=== PATIENT | female | born 1965 | race Caucasian/White ===

== ENCOUNTER 2021-06-06 03:07 | Outpatient (CLI) | payer OTHER, SELFPAY ==
[2021-06-06 10:02] LABS: HCT 37.4 % (36.0-46.0); HGB 11.6 g/dL (11.2-15.7); MCH 27.2 pg (27.0-33.0); MCV 87.8 fL (80-95); MPV 9.7 fL (8.0-11.0); Platelet Count 189 10^3/uL (130-400); RBC 4.26 10^6/uL (3.93-5.22); RDW 13.2 % (11.7-14.6); RDW-SD 42.5 fL; WBC 5.24 10^3/uL (4.4-10.8)
[2021-06-06 11:35] LABS: ALT 40 U/L (14-59); AST 29 U/L (15-37); Albumin 3.5 g/dL (3.4-5.0); Alkaline Phosphatase 109 U/L (46-116); Anion Gap 5.9 mmol/L (3-11); BUN 29 mg/dL (7-18); Bilirubin, Total 0.3 mg/dL (0.2-1.0); CO2 29.1 mmol/L (21.0-32.0); CREATININE 1.1 mg/dL (0.55-1.02); Calcium 8.3 mg/dL (8.5-10.1); Calculated LDL 162 mg/dL (<100); Chloride 108 mmol/L (98-107); Cholesterol 234 mg/dL (<200); Estimated GFR 51.38 (mL/min/1.73m2); Glucose 89 mg/dL (74-106); HDL Cholesterol 66 mg/dL (40-60); Potassium 4.3 mmol/L (3.5-5.1); Sodium 143 mmol/L (136-145); TSH (W/Ref FT4) 2.46 uIU/mL (0.36-3.74); Total Protein 6.6 g/dL (6.4-8.2); Triglyceride 33 mg/dL (<150)
== END 2021-06-06 03:08 | disposition home or self-care (01) ==
LOC: LBO 03:07
PROVIDERS: PCP Student in an Organized Health Care Education/Training Program; Visit Provider Student in an Organized Health Care Education/Training Program
DX: I10 Essential (primary) hypertension (principal); G25.81 Restless legs syndrome; Z13.1 Encounter for screening for diabetes mellitus; Z13.220 Encounter for screening for lipoid disorders; R53.83 Other fatigue; F33.1 Major depressive disorder, recurrent, moderate
CPT/HCPCS: 36415; 80053; 80061; 85027; 84443

== ENCOUNTER 2021-06-14 09:48 | Outpatient (CLI) | payer OTHER, SELFPAY ==
--- NOTE | 2021-06-14 09:15 | DI.RAD_ITS ---
Exam(s) XR FACIAL BONES LIMITED EXAM: XR FACIAL BONES LIMITED CLINICAL HISTORY: Evaluate under-eye pain (Maxilla/ZygoProcess), face pain, fall, PIPER, R51.9. TECHNIQUE: 2D digital imaging was performed. COMPARISON: No exams were available for comparison FINDINGS: Limited two view study reveals no obvious fractures nor fluid in the visualized paranasal sinuses. If clinically indicated follow-up maxillofacial CT scan can be performed. IMPRESSION: DATA REPOSITORY: RADIATION DOSE DELIVERED:
== END 2021-06-14 10:08 ==
LOC: DI 09:49
PROVIDERS: PCP Student in an Organized Health Care Education/Training Program; Visit Provider Student in an Organized Health Care Education/Training Program
DX: G89.11 Acute pain due to trauma (principal); R51.9 Headache, unspecified; W19.XXXA Unspecified fall, initial encounter
CPT/HCPCS: 70140

== ENCOUNTER 2021-09-05 11:19 | Outpatient (CLI) | payer OTHER, SELFPAY ==
[2021-09-06 11:12] LABS: COVID-19 RT-PCR UVMMC Result Negative (Negative)
== END 2021-09-05 11:20 | disposition home or self-care (01) ==
LOC: LBO 11:19
PROVIDERS: PCP Student in an Organized Health Care Education/Training Program; Visit Provider Student in an Organized Health Care Education/Training Program
DX: Z20.822 Contact with and (suspected) exposure to COVID-19 (principal)
CPT/HCPCS: U0003

== ENCOUNTER 2021-10-16 01:52 | Outpatient (CLI) | payer OTHER, SELFPAY ==
--- NOTE | 2021-10-16 06:45 | DI.RAD_ITS ---
Exam(s) XR CHEST 2V PA LATERAL EXAM: XR CHEST 2V PA LATERAL CLINICAL HISTORY: lingering cough; r/o pneumonia,r05.9,j45.909,reactive airway disease TECHNIQUE: 2D digital imaging was performed of the chest. Two images were obtained. PA and lateral views were obtained. COMPARISON: No exams were available for comparison FINDINGS: MEDIASTINUM: Normal. HEART: Normal. PULMONARY VASCULATURE: Normal. LUNGS: Clear. PLEURAL SPACE: No pleural effusion or pneumothorax. BONE:Within normal limits for the patient's age. OTHER FINDINGS:Normal. IMPRESSION: No acute pulmonary findings. DATA REPOSITORY: RADIATION DOSE DELIVERED:
== END 2021-10-16 02:12 ==
LOC: DI 01:52
PROVIDERS: PCP Student in an Organized Health Care Education/Training Program; Visit Provider Student in an Organized Health Care Education/Training Program
DX: J45.909 Unspecified asthma, uncomplicated (principal); R05.9 Cough, unspecified
CPT/HCPCS: 71046

== ENCOUNTER 2022-08-09 00:55 | Outpatient (CLI) | payer OTHER, SELFPAY ==
[2022-08-09 18:00] LABS: Vitamin B12 380 pg/mL (193-986)
== END 2022-08-09 00:56 | disposition home or self-care (01) ==
LOC: LBO 00:55
PROVIDERS: PCP Student in an Organized Health Care Education/Training Program; Visit Provider Nurse Practitioner Adult Health
DX: R41.3 Other amnesia (principal)
CPT/HCPCS: 36415; 82607

== ENCOUNTER 2022-09-11 02:15 | Outpatient (CLI) | payer OTHER, SELFPAY ==
--- NOTE | 2022-09-11 06:30 | DI.MRI_ITS ---
Exam(s) MR BRAIN WO EXAM: MR BRAIN WO CLINICAL HISTORY: memory changes, ? hx abnormal MRI at outside hosp,r41.3 TECHNIQUE: Multiplanar multisequence MRI of the brain was performed. COMPARISON: No exams were available for comparison FINDINGS: The ventricular system is normal in appearance. Note is made of a midline fluid collection of the holder perior aspect of the posterior fossa causing mild deformity of superior aspect of the cerebellar tony spheres, the appearance is most suggestive of an arachnoid cyst. This measures about 25 x 24 x 22 mi llimeters in diameter No signal abnormality identified in the brain. The orbital and temporal bone structures appear intact as does the pituitary. Diffusion weighted imaging shows no evidence of infarction. Susceptibility weighted imaging shows no evidence of intracranial hemorrhage. There is normal flow void in the [place] vasculature. IMPRESSION: Probable posterior fossa arachnoid cyst, otherwise unremarkable examination.. DATA REPOSITORY:
== END 2022-09-11 02:35 ==
LOC: DI 02:16
PROVIDERS: PCP Student in an Organized Health Care Education/Training Program; Visit Provider Nurse Practitioner Adult Health
DX: R41.3 Other amnesia (principal); R94.02 Abnormal brain scan
CPT/HCPCS: 70551

== ENCOUNTER 2023-01-16 03:34 | Outpatient (CLI) | payer OTHER, SELFPAY ==
[2023-01-16 08:03] LABS: HCT 38.6 % (36.0-46.0); HGB 12.3 g/dL (11.2-15.7); MCH 28.5 pg (27.0-33.0); MCHC 31.9 % (32.0-36.0); MCV 90 fL (80-95); MPV 9.6 fL (8.0-11.0); Platelet Count 242 10^3/uL (130-400); RBC 4.31 10^6/uL (3.93-5.22); RDW-SD 42.6 fL; WBC 5.55 10^3/uL (4.4-10.8)
[2023-01-16 08:21] LABS: ALT 55 U/L (14-59); AST 33 U/L (15-37); Albumin 3.5 g/dL (3.4-5.0); Alkaline Phosphatase 125 U/L (46-116); Anion Gap 6.9 mmol/L (3-11); BUN 27 mg/dL (7-18); Bilirubin, Total 0.3 mg/dL (0.2-1.0); CO2 30.1 mmol/L (21.0-32.0); CREATININE 1.1 mg/dL (0.55-1.02); Chloride 106 mmol/L (98-107); Estimated GFR 58.24 (mL/min/1.73m2); Glucose 94 mg/dL (74-106); Potassium 4.8 mmol/L (3.5-5.1); Sodium 143 mmol/L (136-145); Total Protein 7.2 g/dL (6.4-8.2)
== END 2023-01-16 03:35 | disposition home or self-care (01) ==
LOC: LBO 03:34
PROVIDERS: PCP Student in an Organized Health Care Education/Training Program; Visit Provider Student in an Organized Health Care Education/Training Program
DX: R53.83 Other fatigue (principal); E86.0 Dehydration; Z79.899 Other long term (current) drug therapy; Z86.2 Personal history of diseases of the blood and blood-forming organs and certain disorders involving the immune mechanism; F41.8 Other specified anxiety disorders
CPT/HCPCS: 36415; 80053; 85027

== ENCOUNTER → 2024-03-10 03:42 | Outpatient (CLI) | payer OTHER, SELFPAY ==
--- NOTE | 2024-03-10 06:15 | DI.MAMMO_ITS ---
Exam(s) MAMMO SCREENING EXAM: MAMMO SCREENING CLINICAL HISTORY: screening,z12.39 TECHNIQUE: Bilateral full field digital CC and MLO mammographic images were obtained with 3D tomosyn thesis and utilizing computer aided detection (CAD). COMPARISON: Available for comparison. FINDINGS: Masses/Architectural Distortion: There is a new 4 mm nodule in the upper central right breast on the MLO view. Microcalcifications: No suspicious pleomorphic-type are seen. Skin Thickening/Nipple Retraction: None. IMPRESSION: 1. New 4 mm nodule in the upper central right breast on the MLO view. 2. This area should be further evaluated with a spot compression view. Limited right breast ultrasou nd may be indicated at that time. BI-RADS Category 0 - Assessment Incomplete: Need additional imaging evaluation Breast Density - Category B - Scattered areas of fibroglandular density Breast density category C or D implies that the patient has dense breast tissue. Dense breast tissue is very common and is not abnormal but dense breast tissue can make it harder to find cancer on a ma mmogram. Also, dense breast tissue may increase their breast cancer risk. This information about the result of the mammogram report was provided to the patient to raise their awareness. Use this report when you speak with the patient about their risks for breast cancer, which includes their family hist ory. At that time, you may recommend for more screening tests (Ultrasound or MRI) as they might be us eful based on their risk. A negative radiographic report should not delay biopsy if a dominant or clinically suspicious mass is present. Up to ten percent of cancers are not identified on mammography. A negative report may reinforce clinical impression. Adenosis and dense breasts may obscure an underlying neoplasm. False positive reports average 6 to 10%. Patient will receive a letter notifying them of these results.
== END ==
PROVIDERS: PCP Student in an Organized Health Care Education/Training Program; Visit Provider Student in an Organized Health Care Education/Training Program
DX: Z12.31 Encounter for screening mammogram for malignant neoplasm of breast (principal); N63.12 Unspecified lump in the right breast, upper inner quadrant
CPT/HCPCS: 77063; 77067

== ENCOUNTER → 2024-03-19 03:39 | Outpatient (CLI) | payer OTHER, SELFPAY ==
--- NOTE | 2024-03-19 | DI.MAMMO_ITS ---
Exam(s) MG MAMMO SCREEN CALL BACK UNI US BREAST RT COMPLETE EXAM: MG MAMMO SCREEN CALL BACK UNI-RIGHT AND COMPLETE RIGHT BREAST ULTRASOUND CLINICAL HISTORY: NEW 4 MM NODULE UPPER CENTRAL RT BREAST R92.8 ABNL MAMMO. TECHNIQUE: Unilateral RIGHT BREAST spot mammographic images obtained with 3D tomosynthesisand utiliz ing computer aided detection (CAD). . Complete RIGHT breast Ultrasound was also performed, including all 4 quadrants, the retroareolar rachel on, and the ipsilateral axilla. COMPARISON: Prior mammograms were reviewed. This additional imaging was performed due to findings described on the recent screening mammogram of 03/10/2024. FINDINGS: DIAGNOSTIC MAMMOGRAM: Additional mammographic views performed todayappears to dissipate the nodule on the small spot compre ssion paddle view but persists on the larger paddle view. We proceeded with ultrasound... COMPLETE RIGHT BREAST ULTRASOUND: Ultrasound performed today reveals no evidence of focal finding to correspond to the small nodular de nsity described on the recent screening mammogram of 03/10/2024.. At the 4 o'clock position there is a 1.3 by 0.4 cm slightly lobulated solid nodule which contains a s maritza calcification, this corresponding to the fibroadenoma seen on the mammogram and which is unchan ged from prior mammograms dating back to at least 2013. At the central para areolar 2 o'clock position there is a similar appearing slightly lobulated solid nodule measuring 5 x 4 mm. Does not contain a calcification. Exhibits neutral through transmission. I suspect that this is either a hemorrhagic microcyst or another smaller fibroadenoma. This probab ly does not correspond to the nodule seen on the recent mammogram. There are no other focal findings in all 4 quadrants. Scanning of the ipsilateral axilla reveals no significant adenopathy. IMPRESSION: 1. Findings as above which are probably benign. Appropriate follow-up as discussed by myself with the patient today is repeat right breast mammogram and ultrasound in 6 months, this mostly to revisit the small mammographically visible nodule seen on the mammogram of 03/10/2024 and to revisit the 2 o'clock position nodule on the ultrasound. The patient was informed of these findings and recommendations by myself prior to leaving the departm ent today. BI-RADS Category 3 - 6 month - Probably Benign Finding: Recommend follow-up mammography in 6 months Breast Density - Category B - Scattered areas of fibroglandular density Breast density Category C or D implies that the patient has dense breast tissue. Dense breast tissue can make it harder to find cancer on a mammogram. Dense breast tissue is also associated with an incr eased risk of breast cancer. This information about the result of the mammogram report was provided to the patient to raise their awareness. Use this report when you speak with the patient about their risks for breast cancer, which includes their family history. At that time, you may recommend additional screening tests (Ultrasoun d or MRI) as these tests may add significant information. A negative radiographic report should not delay biopsy if a dominant or clinically suspicious mass is present. Up to ten percent of cancers are not identified on mammography. A negative report may reinforce clinical impression. Adenosis and dense breasts may obscure an underlying neoplasm. False positive reports average 6 to 10%. Patient will receive a letter notifying them of these results.
== END ==
PROVIDERS: PCP Student in an Organized Health Care Education/Training Program; Visit Provider Student in an Organized Health Care Education/Training Program
DX: Z12.31 Encounter for screening mammogram for malignant neoplasm of breast (principal); N63.22 Unspecified lump in the left breast, upper inner quadrant
CPT/HCPCS: 76642; 77063; 77067

== ENCOUNTER 2024-10-22 00:03 | Outpatient (CLI) | payer OTHER, SELFPAY ==
--- NOTE | 2024-10-22 14:28 | DI.MAMMO_ITS ---
Exam(s) MG MAMMO DIAGNOSTIC UNI EXAM: MG MAMMO DIAGNOSTIC UNI CLINICAL HISTORY: 6 MO F/U,F/U ABNL INCONCLUSIVE MAMMO,R92.8,RT NODULARITY TECHNIQUE: Cc and MLO mammogram images were performed according to the usual protocol including computer analysis with CAD system, tomosynthesis and C-view imaging. COMPARISON: MG MG MAMMO SCREENING from 03/10/2024 MG MG MAMMO SCREEN CALL BACK UNI from 03/19/2024 US US BREAST RT COMPLETE from 03/19/2024 FINDINGS: The right breast is composed of scattered fibroglandular densities, Breast Density category B. No suspicious masses or suspicious microcalcifications are seen. The small area of nodularity in q uestion on the prior 2023 exam has decreased in size. Stable area of nodularity with calcification n oted in the lower inner quadrant. No skin thickening or abnormal axillary lymph nodes are seen. IMPRESSION: BI-RADS Category 2 - Benign Findings mammogram Yearly screening mammography is recommended, due in 6 months. Breast Density - Category B, scattered fibroglandular densities. A negative radiographic report should not delay biopsy if a dominant or clinically suspicious mass is present. Up to ten percent of cancers are not identified on mammography. A negative report may reinforce clinical impression. Adenosis and dense breasts may obscure an underlying neoplasm. False positive reports average 6 to 10%. Patient will receive a letter notifying them of these results.
== END 2024-10-22 00:23 ==
LOC: DI 00:03
PROVIDERS: PCP Student in an Organized Health Care Education/Training Program; Visit Provider Student in an Organized Health Care Education/Training Program
DX: Z12.31 Encounter for screening mammogram for malignant neoplasm of breast (principal); R92.8 Other abnormal and inconclusive findings on diagnostic imaging of breast
CPT/HCPCS: 77061; 77065; G0279

== ENCOUNTER 2025-02-01 01:29 | Outpatient (CLI) | payer OTHER, SELFPAY ==
[2025-02-01 09:16] LABS: HCT 35.2 % (36.0-46.0); HGB 11.2 g/dL (11.2-15.7); MCH 28.6 pg (27.0-33.0); MCHC 31.8 % (32.0-36.0); MCV 90 fL (80-95); MPV 9.5 fL (8.0-11.0); Platelet Count 203 10^3/uL (130-400); RBC 3.92 10^6/uL (3.93-5.22); RDW 13.1 % (11.7-14.6); RDW-SD 43.4 fL; WBC 5.21 10^3/uL (4.4-10.8)
[2025-02-01 10:00] LABS: ALT 40 U/L (14-59); AST 34 U/L (15-37); Albumin 3.5 g/dL (3.4-5.0); Alkaline Phosphatase 113 U/L (46-116); Anion Gap 7.7 mmol/L (3-11); BUN 23 mg/dL (7-18); Bilirubin, Total 0.3 mg/dL (0.2-1.0); CO2 29.3 mmol/L (21.0-32.0); CREATININE 0.9 mg/dL (0.55-1.02); Calcium 8.7 mg/dL (8.5-10.1); Calculated LDL 121 mg/dL (<100); Chloride 106 mmol/L (98-107); Cholesterol 206 mg/dL (<200); Estimated GFR 73.19 (mL/min/1.73m2); Glucose 91 mg/dL (74-106); HDL Cholesterol 69 mg/dL (>or=50); Potassium 4.6 mmol/L (3.5-5.1); Sodium 143 mmol/L (136-145); TSH (W/Ref FT4) 2.75 uIU/mL (0.36-3.74); Triglyceride 84 mg/dL (<150); Vitamin D 25 Total 32 ng/mL (30-100)
[2025-02-01 10:05] LABS: Iron 56 ug/dL (50-170); Total Iron Binding Capacity 376 ug/dL (250-450); Transferrin Sat 15 % (15-50)
[2025-02-03 10:44] LABS: Lamotrigine 5.1 mcg/mL (3.0-15.0)
== END 2025-02-01 01:30 | disposition home or self-care (01) ==
LOC: LBO 01:29
PROVIDERS: PCP Nurse Practitioner Family; Referring Provider Nurse Practitioner Family; Visit Provider Nurse Practitioner Family
DX: Z13.220 Encounter for screening for lipoid disorders (principal); Z13.1 Encounter for screening for diabetes mellitus; Z71.89 Other specified counseling; F33.1 Major depressive disorder, recurrent, moderate; I95.9 Hypotension, unspecified; J30.2 Other seasonal allergic rhinitis; K21.9 Gastro-esophageal reflux disease without esophagitis; K82.4 Cholesterolosis of gallbladder; R19.8 Other specified symptoms and signs involving the digestive system and abdomen; Z87.448 Personal history of other diseases of urinary system; R53.83 Other fatigue; R74.8 Abnormal levels of other serum enzymes; K90.9 Intestinal malabsorption, unspecified; Z13.0 Encounter for screening for diseases of the blood and blood-forming organs and certain disorders involving the immune mechanism
CPT/HCPCS: 36415; 80053; 80061; 80175; 82306; 85027; 83540; 83550; 84443

== ENCOUNTER 2025-04-18 02:55 | Outpatient (CLI) | payer OTHER, SELFPAY ==
--- NOTE | 2025-04-18 07:00 | DI.MAMMO_ITS ---
Exam(s) MAMMO SCREENING EXAM: MAMMO SCREENING CLINICAL HISTORY: screening,z12.31 TECHNIQUE: Bilateral full field digital CC and MLO mammographic images were obtained with 3D tomosyn thesis and utilizing computer aided detection (CAD). COMPARISON: Available for comparison. FINDINGS: Masses/Architectural Distortion: No suspicious masses or areas of architectural distortion are presen t. There is a stable 1.1 x 1.2 cm nodule in the lower inner quadrant of the right breast with a cent ral calcification. Measurements are best appreciated when compared to the tomographic images from th e prior examination on 10/22/2024. Microcalcifications: No suspicious pleomorphic-type are seen. Skin Thickening/Nipple Retraction: None. IMPRESSION: 1. No significant interval change with no specific features of malignancy noted. 2. Unless there is more urgent need, screening mammography is recommended, as per [employer] guidelines. BI-RADS Category 2 - Benign Findings Breast Density - Category B - There are scattered areas of fibroglandular density. Breast density Category C or D implies that the patient has dense breast tissue. Dense breast tissue can make it harder to find cancer on a mammogram. Dense breast tissue is also associated with an incr eased risk of breast cancer. This information about the result of the mammogram report was provided to the patient to raise their awareness. Use this report when you speak with the patient about their risks for breast cancer, which includes their family history. At that time, you may recommend additional screening tests (Ultrasoun d or MRI) as these tests may add significant information. A negative radiographic report should not delay biopsy if a dominant or clinically suspicious mass is present. Up to ten percent of cancers are not identified on mammography. A negative report may reinforce clinical impression. Adenosis and dense breasts may obscure an underlying neoplasm. False positive reports average 6 to 10%. Patient will receive a letter notifying them of these results.
== END 2025-04-18 03:15 ==
PROVIDERS: PCP Nurse Practitioner Family; Visit Provider Nurse Practitioner Family
DX: Z12.31 Encounter for screening mammogram for malignant neoplasm of breast (principal); R92.323 Mammographic fibroglandular density, bilateral breasts
CPT/HCPCS: 77063; 77067

== ENCOUNTER 2025-11-16 02:33 | Outpatient (CLI) | payer OTHER, SELFPAY ==
[2025-11-16 08:59] LABS: Vitamin B12 320 pg/mL (211-911)
== END 2025-11-16 02:34 | disposition home or self-care (01) ==
LOC: LBO 02:33
PROVIDERS: PCP Nurse Practitioner Family; Visit Provider Nurse Practitioner Family
DX: K13.79 Other lesions of oral mucosa (principal)
CPT/HCPCS: 36415; 82607